=== PATIENT | male | born 1935 | race African-American/Black ===

== ENCOUNTER → 2019-04-20 | Outpatient (CLI) | payer MEDICARE ==
--- NOTE | 2019-04-21 18:27 | Diagnostic Imaging Report ---
Bone Scan, delayed phase INDICATION: C61: Malignant neoplasm of prostate COMPARISON: None REPORT: Approximately 3 hours following intravenous administration of 25 mCi of Tc-99m MDP, delayed total body images in the anterior and posterior projections and selected spot images were obtained. Foci of increased tracer activity are seen in the skull base posteriorly on the right, most levels of the thoracolumbar spine, multiple ribs anteriorly and posteriorly, bilateral scapulae, sternum, right clavicle, all bones of the pelvis, bilateral humeral heads, left femoral head and neck and bilateral intertrochanteric femurs. No abnormal accumulation of tracer is seen in the soft tissues or urinary tract. 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 Signed by: Dr. Kellie Christine M.D. on 04/21/2019 6:23 PM
== END ==
LOC: NM 14:07
PROVIDERS: ATTEND Urology
DX: C61 Malignant neoplasm of prostate (principal)
CPT/HCPCS: 78306; A9503